=== PATIENT | male | born 1980 | race Caucasian/White ===

== ENCOUNTER 2023-02-08 14:24 | Emergency (ER) | payer OTHER, SELFPAY ==
[2023-02-08 14:25] VITALS: BP 112/82; PULSE 58; RESP 16; TEMP 36.9; O2SAT 98; BMI 25.4
[2023-02-08] MEDS: Diphth,Pertuss(Acell),Tet Vac 0.5 ML Vial IM (15:18)
--- NOTE | 2023-02-08 15:18 | EDS_ITS ---
HPI <LILY Rahman - Last Filed: 02/08/23 17:48> History of Present Illness Chief Complaint: Laceration Narrative Narrative: Patient presenting today with a laceration to his right middle finger that he got from a table saw earlier this afternoon. He is not on any blood thinners, his tetanus is not up-to-date, and he denies any other injury. Tetanus Immunization: >10 years PFS <LILY Rahman - Last Filed: 02/08/23 17:48> PFSH Home Medications cephalexin 500 mg capsule 500 mg PO TID 7 days #21 caps 02/08/23 [Rx Last Taken Unknown] Allergy/AdvReac Type Severity Reaction Status Date / Time No Known Allergies Allergy Verified 02/08/23 14:25 Social History Smoking Status: Never smoker ROS <LILY Rahman - Last Filed: 02/08/23 17:48> ROS ED Constitutional Constitutional ED: Denies chills or fever(s) Cardiovascular Cardiovascular: Denies chest pain Respiratory/Chest Respiratory/Chest: Denies cough or dyspnea Gastrointestinal Gastrointestinal: Denies abdominal pain, nausea or vomiting Musculoskeletal Musculoskeletal: Denies arthralgias or myalgias Integumentary Reports laceration Neurologic Neurologic: Denies paresthesias or weakness EXAM <LILY Rahman - Last Filed: 02/08/23 17:48> Physical Exam Const Vital Signs: 02/08/23 14:25 02/08/23 17:15 Temperature 98.5 F Temperature Source Temporal Pulse Rate 58 L 84 Respiratory Rate 16 16 Blood Pressure 112/82 H 139/88 H Blood Pressure Mean 92 Pulse Ox 98 97 Oxygen Delivery Method Room Air Positive well nourished, well developed and no apparent distress General Appearance ED: well developed HEENT Reports normocephalic and head/scalp atraumatic Mouth ED: Yes moist mucous membranes normal Eyes PERRL and EOMs intact bilaterally Neck full ROM and supple Chest Wall inspection of chest normal Resp normal respiratory effort and clear to auscultation bilaterally Cardio regular rate and regular rhythm GI soft to palpation, non-tender, non-distended and no masses Back/Spine normal ROM and normal to inspection Extremity full ROM Extremity Narrative: Laceration along the length of the dorsal aspect of the right third finger that starts around the MCP joints and extends to the DIP joint, about 5 cm. Neuro oriented x3, CN's II-XII intact bilaterally, moves all extremities, no focal motor deficits and no sensory deficits noted Sensorium / Orientation: awake and alert Psych mental status grossly normal and thought process normal Skin no rashes or lesions noted and no wounds <Dr. Paco Snider MD - Last Filed: 02/08/23 16:51> Physical Exam Const Vital Signs: 02/08/23 14:25 02/08/23 17:15 Temperature 98.5 F Temperature Source Temporal Pulse Rate 58 L 84 Respiratory Rate 16 16 Blood Pressure 112/82 H 139/88 H Blood Pressure Mean 92 Pulse Ox 98 97 Oxygen Delivery Method Room Air PROC <LILY Rahman - Last Filed: 02/08/23 17:48> Procedures Lacerations laceration: Length: 5 cm Depth: Sub Q Shape: Complex laceration, linear with a small flap near the DIP joint Laceration repair: Digital block, Irrigated and Skin sutures Irrigated (ml): 300 Number of Sutures/Declan: 14 Suture Information: Vicryl (5-0) and Ethilon (5-0) Comment: Right third finger nail removal, nailbed is macerated but I was able to put in 2 Vicryl sutures to help with the bleeding. Bacitracin ointment was applied to the nailbed and dressing was placed over top of the nailbed and pushed into the cuticle. [facility] <LILY Rahman - Last Filed: 02/08/23 17:48> [facility] Narrative Medical decision making narrative: Patient presenting due to a laceration to his right middle finger from a table saw that occurred earlier this afternoon. His tetanus is not up-to-date, this will be updated here. X-ray obtained to rule out fracture of the finger and does show fracture fragments to the distal and proximal phalanges of the third finger. The wound was extensively irrigated with saline and cleaned with chlorhexidine. There is a laceration along the length of the third finger starting above the MCP joint and extending to the DIP joint. I did have to remove the fingernail and the nail bed was macerated but I was able to put a few sutures in there to help control the bleeding. The finger was bandaged with bacitracin ointment applied to the finger. He was given a finger splint. He was given pain control here and will be started on Keflex with first dose here. He has been given an orthopedic referral for follow-up. He has been educated on signs of infection to look out for and reasons to return. He is to have the sutures removed in 7 to 10 days. He will be discharged home in stable condition and is comfortable with plan. Radiography X-Ray: Read by ED Physician and Read by Radiologist Diagnostic Testing: Clinical Impression(s) from Imaging Studies Hand X-Ray 02/08/23 15:20 IMPRESSION: Small calcifications adjacent to the distal and proximal phalanges of the third finger consistent with small fracture fragments. Electronically Signed: Carl East MD at 15:40 EDT , <Dr. Paco Snider MD - Last Filed: 02/08/23 16:51> MDM Radiography Diagnostic Testing: Clinical Impression(s) from Imaging Studies Hand X-Ray 02/08/23 15:20 IMPRESSION: Small calcifications adjacent to the distal and proximal phalanges of the third finger consistent with small fracture fragments. Electronically Signed: Carl East MD at 15:40 EDT , Three-view right hand x-ray on my interpretation shows chip fractures of the distal and middle phalanges. Treatment and Re-Evaluation Narrative: I have personally performed a face to face assessment of the patient and have reviewed the ARSENIO Note. I performed a substantive portion of the visit including all aspects of the following. My mcadams findings include: History is patient injured right middle finger on a table saw. Last tetanus unknown. [id number]. No other injuries. Exam is longitudinal laceration along the dorsum of the right middle finger, progresses to about the PIPJ, involves the nail and nailbed, half of the nail is missing/avulsed. Extensor mechanism is completely intact, FDS, FDP mechanism is intact as well. Medical Decison Making x-ray, repair, antibiotics, refer to orthopedics as outpatient. Tetanus updated. Other additions or changes: [None] Discharge Plan Triage Chief Complaint: Laceration ED Midlevel Provider: Saskia Mahajan ED Provider: Paco Snider Dx/Rx/DC Orders Clinical Impression: Open finger fracture, Laceration of finger, Nailbed injury Instructions: ED Open Hand Fracture (Adult), ED Laceration, Hand: All Closures Prescriptions: New cephalexin 500 mg capsule 500 mg PO TID 7 Days Qty: 21 0RF Primary Care Provider: Care Physician,No Primary Referrals: Salomon Coley DO [Med Staff - Active Staff] - 3-5 Days Care Physician,No Primary [Primary Care Provider] - Activity Restrictions/Additional Instructions: Please follow-up with the orthopedic doctor, keep your finger clean and clean it twice a day. Keep your finger covered with antibiotic ointment and a bandage. Please follow-up with your doctor or return for any signs of infection such as increased redness, swelling, purulent discharge, or fever. Have sutures removed in 7 to 10 days. Disposition Disposition: Home, Self Care Discharge Date/Time: 02/08/23 17:18
[2023-02-08] MEDS: Lidocaine 1% (20 ml mdv) 20 ML Vial INFILT (15:19)
--- NOTE | 2023-02-08 15:20 | RAD_ITS ---
INDICATION: laceration EXAMINATION/TECHNIQUE: X-RAY - RIGHT XR Hand Min 3 Views 3 VIEWS COMPARISON: None. FINDINGS: SOFT TISSUES: Small calcific densities adjacent to the distal phalanx of the third finger and of the proximal phalanx likely representing small fracture fragments including small intra-articular fracture of the base of the distal phalanx. Nondisplaced fracture of the tip of the distal phalanx. Irregularity of the lateral aspect of the middle phalanx likely due to injury. The remainder of the osseous structures are unremarkable. JOINTS: The joint spaces are within normal limits. No evidence of dislocation. RAD/Hand Min 3 Views IMPRESSION: Small calcifications adjacent to the distal and proximal phalanges of the third finger consistent with small fracture fragments. Electronically Signed: Carl East MD at 15:40 EDT ,
[2023-02-08] MEDS: HYDROcodone Bitartrate/Apap 5/325 Tablet PO (17:12)
[2023-02-08] MEDS: Cephalexin 250 MG Capsule 500 MG PO (17:12)
[2023-02-08 17:15] VITALS: BP 139/88; PULSE 84; RESP 16; O2SAT 97
== END 2023-02-08 17:18 | disposition home or self-care (01) ==
PROVIDERS: Emergency Provider Emergency Medicine; Visit Provider Emergency Medicine
DX: Z23 Encounter for immunization (principal); S61.312A Laceration without foreign body of right middle finger with damage to nail, initial encounter; X58.XXXA Exposure to other specified factors, initial encounter
CPT/HCPCS: 12002; 73130; 90471; 90715; 99284